=== PATIENT | female | born 1995 | race Caucasian/White ===

== ENCOUNTER 2017-03-21 19:16 | Outpatient (CLI) | payer MEDICAID ==
[~2017-03-21] VITALS: Ht 149.9 cm; Wt 61.1 kg
[2017-03-21 19:58] VITALS: Ht 149.9 cm; Wt 61.1 kg
[2017-03-21 20:00] VITALS: BP 116/69; PULSE 82; RESP 18
[2017-03-21] MEDS ORDERED: PREN-17 PO (20:24)
[2017-03-21 21:47] LABS: ADD UMIC YES; UR ASCORBIC ACID NEGATIVE (NEGATIVE); UR BACTERIA FEW /HPF (NONE SEEN); UR BILIRUBIN (Dip) NEGATIVE (NEGATIVE); UR BLOOD (Dip) NEGATIVE (NEGATIVE); UR CLARITY SLIGHTLY CLOUDY (CLEAR); UR COLOR YELLOW (YELLOW); UR GLUCOSE (Dip) NEGATIVE (NEGATIVE); UR KETONES (Dip) NEGATIVE (NEGATIVE); UR LEUKOCYTE ESTERASE (Dip) 1+ Leu/ul (NEGATIVE); UR NITRITE (Dip) NEGATIVE (NEGATIVE); UR RBC 13 /HPF (0-5); UR SPECIFIC GRAVITY (Dip) 1.013 (1.003-1.030); UR SQUAMOUS EPITHELIAL CELL FEW /HPF (FEW); UR TOTAL PROTEIN (Dip) NEGATIVE (NEGATIVE); UR UROBILINOGEN (Dip) NEGATIVE (NEGATIVE)
--- NOTE | 2017-03-22 00:03 | PN ---
Triage Information Date/Time Mar 22, 2017 Reason for visit: Uterine contractions Weeks of Gestation 40w 5d /Para 1/0 Diabetes: none Hypertention: none Additional information Pt came in after having one contraction. Denies any bleeding or leaking. Feels the baby moving a lot. PMHx: none. PSHx: none. NKDA. Objective Vital Signs Date Time Temp Pulse Resp B/P Pulse Ox O2 Delivery O2 Flow Rate FiO2 03/21/17 20:00 98.4 82 18 116/69 Room Air Heart Rate: 130's Heart Rate Comments No decels. Contractions: 6-10 Minutes Apart Exam 60%/FT/-2/posterior. After ambulating x 2 hours the exam is unchanged. Results/Medications Results 24 hrs Laboratory Tests Test 03/21/17 20:00 Urine Color YELLOW Urine Clarity SLIGHTLY CLOUDY A Urine pH 7.0 Urine Specific [place] 1.013 Urine Ketones NEGATIVE Urine Nitrite NEGATIVE Urine Bilirubin NEGATIVE Urine Urobilinogen NEGATIVE Urine Leukocyte Esterase 1+ H Urine Microscopic RBC 13 H Urine Microscopic WBC 4 Urine Squamous Epithelial Cells FEW Urine Bacteria FEW A Urine Hemoglobin NEGATIVE Urine Glucose NEGATIVE Urine Total Protein NEGATIVE Disposition: Discharge Assessment/Plan A: IUP at 40w 5d. False labor. P: D/C home. Pt is scheduled for induction on 03/25. Reviewed labor precautions with pt. CHRISTOFER VELA MD Mar 22, 2017 00:03
--- NOTE | 2017-03-22 00:21 | TRIAGE ---
OB Triage Datetime Report Generated by CPN: 03/22/2017 00:21 Datetime: 03/21/2017 23:20 Stage of : OB Triage Datetime: 03/21/2017 22:32 Heart Rate FHR Baseline Rate: 125 Monitor Mode: External US FHR Baseline Changes: No Baseline Change Variability: Moderate 6-25 bpm Accelerations: 15X15 Decelerations: None Category: Category I Vaginal Exam Dilatation (cms): 0.5 Effacement (%): 60 Station: -2 Exam By: Murali Claros Membrane Status: Intact Vaginal Bleeding: None Cervix, Consistency: Soft Cervix, Position: Posterior Presentation 'A': Cephalic Datetime: 03/21/2017 22:10 Stage of : OB Triage Monitor Mode: External Quality: Moderate Pattern: Normal: <= 5 Contractions in 10 Minutes Resting Tone [place]: Relaxed Heart Rate FHR Baseline Rate: 130 Monitor Mode: External US Pain Assessment Pain Scale: 3 Pain Presence: Intermittent Pain Type: Cramping Pain Location: Abdomen Datetime: 03/21/2017 20:59 Stage of : OB Triage Datetime: 03/21/2017 20:06 Stage of : OB Triage Labor Evaluation Frequency: 5-8 Monitor Mode: External Duration (sec)2399: 60 Quality: Moderate Pattern: Normal: <= 5 Contractions in 10 Minutes Resting Tone [place]: Relaxed Heart Rate FHR Baseline Rate: 120 Monitor Mode: External US FHR Baseline Changes: No Baseline Change Variability: Moderate 6-25 bpm Accelerations: 15X15 Decelerations: None Category: Category I Vaginal Exam Dilatation (cms): 0.5 Effacement (%): 60 Station: -2 Exam By: Murali Farah Status: Intact Vaginal Bleeding: Scant Cervix, Consistency: Soft Cervix, Position: Posterior Presentation 'A': Cephalic Datetime: 03/21/2017 19:35 EGA: 40.4 Datetime: 03/21/2017 19:30 Time of Arrival: 03/21/2017 19:10 Arrived By: Wheelchair Arrived From: Home Chief Complaint: c/o ucs. Denies hx problems this Movement: Present Contractions: Regular Time Contractions Began: 03/21/2017 18:50 Rupture of Membranes: Denies Vaginal Bleeding: None Vaginal Discharge: Denies Recent Sexual Intercouse: Denies Abdominal Trauma: Not Applicable Patient Complaints: Contractions Time Provider Notified: 03/21/2017 21:00 Provider Notified: Dr Thomas Initial Plan: EFM,SVE Datetime: 03/21/2017 19:24 Stage of : OB Triage Maternal Assessment Level of Consciousness: Fully Conscious Headache: Denies Blurred Vision: No Nausea/Vomiting: Denies RUQ Epigastric Pain: Denies Facial Edema: None Monitor Mode: External Resting Tone [place]: Relaxed Heart Rate FHR Baseline Rate: 140 Monitor Mode: External US Pain Assessment Pain Scale: 6 Pain Presence: Intermittent Pain Type: Contraction Pain Location: Abdomen
== END 2017-03-22 00:01 | disposition home or self-care (01) ==
LOC: OBT 19:16 → L-D 19:18 → OBT 03-22 00:01
PROVIDERS: ATTEND Obstetrics & Gynecology
DX: O62.9 Abnormality of forces of labor, unspecified (principal); Z3A.40 40 weeks gestation of pregnancy
CPT/HCPCS: 81001; Z7500; G0463

== ENCOUNTER 2017-03-25 12:33 | Inpatient (IN) | payer MEDICAID ==
[~2017-03-25] VITALS: Ht 162.6 cm; Wt 63.0 kg
[~2017-03-25 12:33] MED LIST: PREN-17 PO
[2017-03-25 12:49] VITALS: BP 119/63; PULSE 72; RESP 18; BMI 27.0
--- NOTE | 2017-03-25 13:46 | RADRPT ---
PROCEDURE: US OB biophysical profile. CLINICAL INDICATION: Post dates TECHNIQUE: Multiple sonographic images of the pelvis were obtained. The images were reviewed on a PACS workstation. COMPARISON: None FINDINGS: There is a single live intrauterine , in cephalic presentation. A normal heart rate i s identified measuring 153 beats per minute. The amniotic fluid index is within normal limits measur ing 6.5 cm. The placenta is grade II - III, located fundally. Biophysical profile: movement 2/2 tone 2/2. breathing 2/2 BUSHRA 2/2 Total 11/13 IMPRESSION: 1. Biophysical profile score of 11/13. 2. Single live intrauterine in cephalic presentation with normal heart rate of 153 b pm. 3. Normal amniotic fluid index of 6.5 cm. RPTAT: AAPP Physician Eva Date Time Electronically viewed and signed by Physician Eva on 03/25/2017 13:47 INDU/
--- NOTE | 2017-03-25 13:51 | RADRPT ---
PROCEDURE: US OB. CLINICAL INDICATION: Post dates. TECHNIQUE: Multiple sonographic images of the pelvis were obtained. Transabdominal imaging only w as performed. The images were reviewed on a PACS workstation. COMPARISON: No prior studies are available for comparison. FINDINGS: There is a single living intrauterine gestation in cephalic position. There is an fundal placenta. There is no evidence of previa. There is active cardiac motion seen at 132 beats per minute. The biparietal diameter is 9.4 cm. The head circumference is 34. 38 cm.. The abdominal circumference is 37.12 cm. The femur length is 7.61 cm.. Consistent with: 06-tovk-4-day gestation Estimated weight is 3982 plus or minus 597 g. IMPRESSION: 1. Single living intrauterine gestation in cephalic position with a mean gestational age by ultraso und of 39 weeks 3 days plus or minus 19 days with estimated date of delivery of 03/29/2017 by ultras ound criteria. RPTAT: AACC Physician Alexis Date Time Electronically viewed and signed by Physician Alexis on 03/25/2017 13:51 /
[2017-03-25] MEDS ORDERED: CARBOPROST 250 MCG INJ IM PRN (14:30)
[2017-03-25] MEDS ORDERED: BUTORPHANOL 2 MG INJ IV PRN (14:30)
[2017-03-25] MEDS ORDERED: OXYTOCIN 30 UNITS/LR 500 ML IV PRN (14:30)
[2017-03-25] MEDS ORDERED: OXYTOCIN 30 UNITS/LR 500 ML IV SCH ×2 (14:30)
[2017-03-25] MEDS ORDERED: DINOPROSTONE 10 MG VAG SUPP VAG ONE (14:30)
[2017-03-25] MEDS ORDERED: LIDOCAINE 1% (MPF) 30 ML INJ INJ PRN (14:30)
[2017-03-25] MEDS ORDERED: METHYLERGONOVINE 0.2 MG INJ IM PRN (14:30)
[2017-03-25] MEDS ORDERED: MISOPROSTOL 200 MCG TAB PR PRN (14:30)
[2017-03-25] MEDS: LACTATED RINGER'S 1,000 ML IV SCH ×2 (15:27→20:22)
[2017-03-25 16:20] LABS: BASOPHILS % 0.2 % (0.0-2.0); EOSINOPHILS # 0.3 10^3/ul (0.0-0.5); EOSINOPHILS % 2.9 % (0.0-7.0); HEMATOCRIT 39.9 % (37.0-47.0); HEMOGLOBIN 13.6 g/dl (12.0-16.0); LYMPHOCYTES # 1.4 10^3/ul (0.8-2.9); LYMPHOCYTES % 14.7 % (18.0-55.0); MEAN CORPUSCULAR HGB CONC 34.1 g/dl (32.0-37.0); MEAN CORPUSCULAR VOLUME 93.9 fl (72.0-104.0); MEAN PLATELET VOLUME 10.9 fl (7.4-10.4); MONOCYTE # 0.8 10^3/ul (0.3-0.9); MONOCYTES % 8.1 % (0.0-13.0); NEUTROPHIL # 7.2 10^3/ul (1.6-7.5); NEUTROPHILS % 73.4 % (30.0-74.0); PLATELET COUNT 203 10^3/UL (140-415); RED BLOOD COUNT 4.25 10^6/ul (4.20-5.40); RED CELL DISTRIBUTION WIDTH 13.5 % (11.5-14.5); WHITE BLOOD COUNT 9.8 10^3/ul (4.8-10.8)
[2017-03-25 16:29] LABS: INR 0.87; PROTIME 11.9 Sec (11.9-14.9); PT RATIO 0.9
[2017-03-25 16:30] LABS: PARTIAL THROMBOPLASTIN TIME 25.2 Sec (25.0-35.0)
--- NOTE | 2017-03-25 17:03 | HP ---
Date/Time of Note Date/Time of Note DATE: 03/25/17 TIME: 16:54 OB - History Hx of Present Free Text/Dictation 21 years old female 1 para 0 EDC March 17, 2017 admitted to [facility] labor and delivery room at 41 week and 1 day gestation in early labor may require labor augmentation. Chief Complaint: Labor contract Estimated Due Date: Mar 17, 2017 : 1 Para: 0 Care: Good Care Obstetrical Complications: None Medical Complications: None Past Family/Social History * Past Medical, Surgical, Family and Obstetric Histories reviewed from chart. Rubella: immune RPR/VDRL: Negative GBS Status: Negative HBsAG: Negative OB Admission Exam Vital Signs Vital Signs Vital Signs Date Time Temp Pulse Resp B/P Pulse Ox O2 Delivery O2 Flow Rate FiO2 03/25/17 12:49 97.9 72 18 119/63 Physical Exam HEENT: WNL Heart: Rhythm Normal Extremities: Normal Reflexes: Normal Cervical Dilatation: 1cm Effacement: 50% Station: -2 Membranes: Intact Heart Rate: 130's Accelerations: Accelerations Present Decelerations: No Decelerations Contractions on Admission: >10 Minutes Apart Intensity: Mild Last 72 hours Lab Results CBC & BMP 03/25/17 15:55 OB Assessment/Plan Reason for admission: other (41 week 1 day early labor) Other plan: 21 years old female 41 weeks 1 day EDC March 17, 2017 admitted to [facility] labor and delivery room in early labo, r pelvic examination and admission cervix 1 cm 50% effaced vertex at -2 station she may require labor augmentation. Cervidil induction explained to the patient , risks and benefits discussed and she is willing to go ahead with the procedure JOSEF ZAVALETA MD Mar 25, 2017 17:03
[2017-03-26] MEDS: BUTORPHANOL 2 MG INJ IV PRN ×2 (01:18→06:46)
[2017-03-26 02:01] VITALS: Ht 162.6 cm; Wt 63.0 kg
[2017-03-26 02:06] VITALS: BP 115/74; RESP 18
[2017-03-26] MEDS: LACTATED RINGER'S 1,000 ML IV SCH ×2 (05:19→12:58)
[2017-03-26] MEDS ORDERED: OXYTOCIN 30 UNITS/LR 500 ML IV SCH (06:00)
[2017-03-26] MEDS ORDERED: CEFAZOLIN 2 GM/50 ML (PMX) 50 ML IVPB ONE (13:00)
[2017-03-26 13:17] LABS: BARBITURATES Negative (NEGATIVE); BENZODIAZEPINES Negative (NEGATIVE); CANNABINOIDS Negative (NEGATIVE); COCAINE Negative (NEGATIVE); OPIATES Negative (NEGATIVE)
[2017-03-26] MEDS ORDERED: FENTAnyl 50 MCG/ML VIAL ONE (13:35)
[2017-03-26] MEDS ORDERED: morphine SULFATE/PF (10 MG/10 ML) INJ ONE (13:35)
[2017-03-26] MEDS ORDERED: PHENYLephrine (100 MCG/ML) 5ML SYG ONE ×2 (13:48→14:15)
[2017-03-26] MEDS ORDERED: OXYTOCIN 30 UNITS/LR 500 ML IV ONE (13:58)
[2017-03-26] MEDS ORDERED: DEXAMETHASONE 4 MG/ML 1 ML INJ ONE (14:14)
[2017-03-26] MEDS ORDERED: ONDANSETRON 4 MG INJ ONE (14:14)
[2017-03-26] MEDS ORDERED: DIPHENHYDRAMINE 50 MG INJ ONE (14:21)
[2017-03-26] MEDS ORDERED: HYDROmorphONE 0.5 MG/0.5 ML SYG IV PRN ×2 (15:00)
[2017-03-26] MEDS ORDERED: ZOLPIDEM 5 MG TAB PO PRN (15:00)
[2017-03-26] MEDS ORDERED: NALOXONE (0.4 MG/ML) INJ IV PRN (15:00)
[2017-03-26] MEDS ORDERED: NALBUPHINE HCL (10 MG/1 ML) INJ IV PRN (15:00)
[2017-03-26] MEDS ORDERED: ONDANSETRON 4 MG INJ IV PRN (15:00)
[2017-03-26] MEDS ORDERED: DIPHENHYDRAMINE 50 MG INJ IV PRN (15:00)
--- NOTE | 2017-03-26 16:40 | HP ---
Date/Time of Note Date/Time of Note DATE: 03/26/17 TIME: 13:49 OB - History Hx of Present Free Text/Dictation 21 years old white female EDC March 17, 2017 admitted at 41 week and 2 days to [facility] for induction of labor, for post dates and low BUSHRA, category 2 heart tracing cervical examination on admission cervix 1 cm 50% vertex at -2 station, Cervidil insertion was on 155March 25, 2017 followed with Pitocin IV infusion drip at approximately 4:00 AM today patient continued labor heart minimally reactive, patient declined further trial of labor vaginal delivery after consulting with the family requesting C- section delivery. Chief Complaint: 41 week and 2 days failed induction declined further trial of lab Estimated Due Date: Mar 17, 2017 : 1 Para: 0 Care: Good Care Ultrasounds: Normal mid trimester US Obstetrical Complications: None Medical Complications: None Past Family/Social History * Past Medical, Surgical, Family and Obstetric Histories reviewed from chart. Rubella: immune RPR/VDRL: Negative GBS Status: Negative HBsAG: Negative OB Admission Exam Vital Signs Vital Signs Vital Signs Date Time Temp Pulse Resp B/P Pulse Ox O2 Delivery O2 Flow Rate FiO2 03/26/17 02:06 98.6 18 115/74 Room Air 03/25/17 12:49 72 Physical Exam HEENT: WNL Heart: Rhythm Normal Lungs: Clear, Equal Abdomen: WNL Extremities: Normal Effacement: 50% Station: -2 Membranes: Intact Heart Rate: 130's Accelerations: No Accelerations Varibility: Minimum Contractions on Admission: None Last 72 hours Lab Results CBC & BMP 03/25/17 15:55 OB Assessment/Plan Reason for admission: other (Day 1 weeks 2 days admitted for induction of labor) Other plan: 21 years old white female EDC March 17, 2017 admitted for induction of labor for trial of labor with Cervidil and Pitocin induction ,patient did not progress further than 1-2 cm dilatation, declined further trial of labor requested delivery ,option of continuation of induction and benefits of vaginal delivery discussed, she declined further trial of labor requesting section delivery, complication of the including but not limited to bowel bladder injury infection hemorrhage and wound hematoma explained , she would like to proceed with delivery JOSEF ZAVALETA MD Mar 26, 2017 16:40
--- NOTE | 2017-03-26 16:45 | OPR ---
Operative Report Planned Procedure Free Text/Dictation 21 years old EDC 03/17/2017 41 week and 2 days failed induction declined further trial of labor requested delivery Procedure date Mar 26, 2017 Procedure(s) Primary Performed by see signature line Nuclear Technician DELFIN CABA Anesthesiologist: VERNON SPANN MD Pre-procedure diagnosis 41 weeks 2 days , failed induction declined further trial of labor , requested delivery Anesthesia Type: spinal Post-Procedure Post-procedure diagnosis Same as above Findings Live Baby boy Apgars 8 and 9 Estimated Blood Loss: 500 - 600 mls Specimen(s) none Grafts/Implant(s) none Complication(s) none Pt Condition post procedure: stable Procedure Description Under satisfactory spinal anesthesia patient prepped and draped and placed in supine position. Pfannenstiel incision was made. Incision carried through the subcutaneous tissue. Fascia incised to the length of incision. Rectus muscle divided in midline. Peritoneum exposed and entered to a vertical incision. Exploration of abdomen revealed [gravid uterus at term normal-appearing tubes and ovaries.] Bladder flap was developed. Transverse incision was made in the lower segment of the uterus. Amniotic sac ruptured, [clear amniotic fluid noted. ] Live baby boy was delivered from unengaged vertex.Naso oropharyngeal suction was performed. Baby handed to the team for immediate attention. Patient received 20 units of Pitocin. Placenta delivered manually intact. Uterine cavity cleaned with a wet sponge and drainage established. Uterus closed in 2 layers using Monocryl #1 in continuous fashion. Peritoneal cavity irrigated with warm saline. Sponge needle instrument reported to be correct. Abdominal peritoneum closed with 2-0 chromic catgut continuously. Fascia closed with #1 PDS in a continuous fashion. Subcutaneous tissue irrigated with warm saline and approximated with 2-0 chromic catgut skin closed with N sorb. Estimated blood loss [6-700 cc]. Urine bag containing [200] mL of [clear] urine. Patient tolerated procedure well and transferred to recovery room in good condition. JOSEF ZAVALETA MD Mar 26, 2017 16:45
[2017-03-26 18:30] VITALS: BP 123/78; PULSE 73; RESP 16
[2017-03-26] MEDS: OXYTOCIN 30 UNITS/LR 500 ML IV SCH ×2 (18:41→22:41)
[2017-03-26] MEDS ORDERED: METHYLERGONOVINE 0.2 MG INJ IM PRN (19:00)
[2017-03-26] MEDS ORDERED: MISOPROSTOL 200 MCG TAB PR PRN (19:00)
[2017-03-26] MEDS ORDERED: OXYTOCIN 30 UNITS/LR 500 ML IV PRN (19:00)
[2017-03-26] MEDS ORDERED: HYDROCODONE/APAP (5/325) TAB PO PRN ×2 (19:00)
[2017-03-26] MEDS ORDERED: OXYCODONE/ACETAMINOPHEN (5/325) TAB PO PRN (19:00)
[2017-03-26] MEDS ORDERED: CARBOPROST 250 MCG INJ IM PRN (19:00)
[2017-03-26] MEDS ORDERED: LANOLIN 7 GM TUBE TOP PRN (19:00)
[2017-03-26] MEDS ORDERED: CEFAZOLIN 1 GM/50 ML (PMX) 50 ML IVPB SCH (19:00)
[2017-03-26 20:00] VITALS: BP 108/62; PULSE 72; RESP 17
[2017-03-26] MEDS: KETOROLAC 30 MG INJ IV PRN (20:47)
[2017-03-27] MEDS: OXYTOCIN 30 UNITS/LR 500 ML IV SCH ×2 (02:41→06:41)
[2017-03-27 04:00] VITALS: BP 102/53; PULSE 72; RESP 17
[2017-03-27] MEDS: KETOROLAC 30 MG INJ IV PRN ×2 (05:24→13:14)
[2017-03-27] MEDS ORDERED: LACTATED RINGER'S 1,000 ML IV SCH (08:00)
[2017-03-27 08:15] VITALS: BP 92/55; PULSE 69; RESP 18
[2017-03-27] MEDS: SENNA/DOCUSATE NA (8.6MG/50MG) TAB PO SCH ×2 (09:27→20:32)
[2017-03-27 09:48] LABS: BASOPHILS % 0.2 % (0.0-2.0); EOSINOPHILS # 0.1 10^3/ul (0.0-0.5); EOSINOPHILS % 0.6 % (0.0-7.0); HEMOGLOBIN 9.2 g/dl (12.0-16.0); LYMPHOCYTES # 1.6 10^3/ul (0.8-2.9); LYMPHOCYTES % 12.2 % (18.0-55.0); MEAN CORPUSCULAR HEMOGLOBIN 30.9 pg (29.0-33.0); MEAN CORPUSCULAR HGB CONC 32.9 g/dl (32.0-37.0); MEAN PLATELET VOLUME 10.4 fl (7.4-10.4); MONOCYTE # 1.3 10^3/ul (0.3-0.9); MONOCYTES % 10.2 % (0.0-13.0); NEUTROPHILS % 76.3 % (30.0-74.0); PLATELET COUNT 153 10^3/UL (140-415); RED BLOOD COUNT 2.98 10^6/ul (4.20-5.40); RED CELL DISTRIBUTION WIDTH 13.2 % (11.5-14.5); WHITE BLOOD COUNT 13.1 10^3/ul (4.8-10.8)
--- NOTE | 2017-03-27 09:48 | QN ---
Documentation Comment Post day 1 Afebrile Vital signs are stable Abdomen soft incision dry,. Bowel sounds present. Lochia moderate. Extremities normal. Ambulation encouraged. JOSEF ZAVALETA MD Mar 27, 2017 09:48
[2017-03-27 12:55] VITALS: BP 95/60; PULSE 78; RESP 14
[2017-03-27 16:30] VITALS: BP 99/71; PULSE 79; RESP 18
[2017-03-27] MEDS: IBUPROFEN 600 MG TAB PO SCH (18:18)
[2017-03-27 20:00] VITALS: BP 91/59; PULSE 84; RESP 18
[2017-03-27] MEDS: OXYCODONE/ACETAMINOPHEN (5/325) TAB PO PRN (20:07)
[2017-03-28] MEDS: OXYCODONE/ACETAMINOPHEN (5/325) TAB PO PRN ×3 (01:21→16:22)
[2017-03-28 04:00] VITALS: BP 90/54; PULSE 74; RESP 19
[2017-03-28] MEDS: IBUPROFEN 600 MG TAB PO SCH ×4 (05:43→17:54)
[2017-03-28 07:50] VITALS: BP 101/57; RESP 17
[2017-03-28] MEDS: SENNA/DOCUSATE NA (8.6MG/50MG) TAB PO SCH ×2 (10:05→21:17)
--- NOTE | 2017-03-28 10:19 | QN ---
Documentation Comment Day 2 post Vital signs, blood pressure 90s over 60s. At times she feels lightheaded. Advised ambulation with help. Hydration encouraged. Abdomen soft bowel sounds present. No bowel movements. Enema recommended. Current Medications Medications (Trade) Dose Ordered Sig/Coleman Route PRN Reason Start Time Stop Time Status Last Admin Dose Admin Lactated Ringer's (Lr) 1,000 ml @ 125 mls/hr Q8H IV 03/25/17 14:26 03/26/17 18:43 DC 03/26/17 12:58 Dinoprostone (Cervidil Vaginal Supp) 10 mg ONCE ONCE VAG 03/25/17 14:30 03/25/17 14:34 DC 03/25/17 15:56 Butorphanol Tartrate (Stadol) 1 mg Q2H PRN IV PAIN 03/25/17 14:30 03/26/17 18:43 DC Butorphanol Tartrate (Stadol) 2 mg Q2H PRN IV PAIN 03/25/17 14:30 03/26/17 18:43 DC 03/26/17 06:46 Lidocaine 30 ml 30 ml ONCE PRN INJ EPISIOTOMY/TEARING 03/25/17 14:30 03/26/17 18:43 DC Oxytocin/Lactated Ringer's 500 ml @ 500 mls/hr ONCE POST IV 03/25/17 14:30 03/26/17 18:43 DC 03/26/17 16:30 Oxytocin/Lactated Ringer's 500 ml @ 125 mls/hr POST IV 03/25/17 14:30 03/26/17 18:43 DC 03/26/17 16:31 Oxytocin/Lactated Ringer's 500 ml @ 0 mls/hr ONCE PRN IV For Hemorrhage Management 03/25/17 14:30 03/26/17 18:43 DC Methylergonovine Maleate (Methergine) 0.2 mg ONCE PRN IM VAGINAL BLEEDING 03/25/17 14:30 03/26/17 18:43 DC Carboprost Tromethamine (Hemabate) 250 mcg ONCE PRN IM VAGINAL BLEEDING 03/25/17 14:30 03/26/17 18:43 DC Misoprostol 1000 mcg 1,000 mcg ONCE PRN MI VAGINAL BLEEDING 03/25/17 14:30 03/26/17 18:44 DC Oxytocin/Lactated Ringer's 500 ml @ 0 mls/hr TITRATE IV 03/26/17 06:00 03/26/17 18:43 DC 03/26/17 05:52 Cefazolin Sodium/ Dextrose (Ancef 2 Gm/50 ml (Pmx)) 50 ml @ 100 mls/hr ONCE ONCE IVPB 03/26/17 13:00 03/26/17 13:29 DC Fentanyl (Sublimaze) 100 mcg STK-MED ONCE .ROUTE 03/26/17 13:35 03/26/17 13:36 DC Morphine Sulfate (Duramorph) 10 mg STK-MED ONCE .ROUTE 03/26/17 13:35 03/26/17 13:36 DC Phenylephrine HCl 500 mcg 500 mcg STK-MED ONCE .ROUTE 03/26/17 13:48 03/26/17 13:49 DC Oxytocin/Lactated Ringer's 500 ml @ ud STK-MED ONCE IV 03/26/17 13:58 03/26/17 13:59 DC Ondansetron HCl (Zofran Inj) 4 mg STK-MED ONCE .ROUTE 03/26/17 14:14 03/26/17 14:15 DC Dexamethasone (Decadron) 4 mg STK-MED ONCE .ROUTE 03/26/17 14:14 03/26/17 14:15 DC Phenylephrine HCl (Rich-Synephrine Inj Syg) 500 mcg STK-MED ONCE .ROUTE 03/26/17 14:15 03/26/17 14:16 DC Diphenhydramine HCl (Benadryl) 50 mg STK-MED ONCE .ROUTE 03/26/17 14:21 03/26/17 14:22 DC Naloxone HCl (Narcan) 0.1 mg Q2M PRN IV FOR RESP RATE 8 OR LESS 03/26/17 15:00 03/27/17 14:59 DC Ketorolac Tromethamine (Toradol) 30 mg Q6H PRN IV PAIN 03/26/17 15:00 03/27/17 14:59 DC 03/27/17 13:14 Hydromorphone HCl (Dilaudid) 0.2 mg Q3H PRN IV PAIN LEVEL 1-5 03/26/17 15:00 03/27/17 14:59 DC Hydromorphone HCl (Dilaudid) 0.4 mg Q3H PRN IV PAIN LEVEL 6-10 03/26/17 15:00 03/27/17 14:59 DC Diphenhydramine HCl (Benadryl) 25 mg Q6H PRN IV ITCHING 03/26/17 15:00 03/27/17 14:59 DC Nalbuphine HCl (Nubain) 5 mg ONCE PRN IV ITCHING 03/26/17 15:00 03/27/17 14:59 DC Ondansetron HCl (Zofran Inj) 4 mg Q6H PRN IV NAUSEA AND/OR VOMITING 03/26/17 15:00 03/27/17 14:59 DC Zolpidem Tartrate (Ambien) 5 mg HS MAY REPEAT X 1 PRN PO INSOMNIA 03/26/17 15:00 03/27/17 14:59 DC Acetaminophen/ Hydrocodone Bitart ([place] (5/325)) 1 tab Q4H PRN PO PAIN LEVEL 4-6 03/26/17 19:00 Acetaminophen/ Hydrocodone Bitart ([place] (5/325)) 2 tab Q4H PRN PO PAIN LEVEL 7-10 03/26/17 19:00 Oxycodone/ Acetaminophen (Percocet (5/ 325)) 1 tab Q4H PRN PO PAIN LEVEL 4-6 03/26/17 19:00 Oxycodone/ Acetaminophen (Percocet (5/ 325)) 2 tab Q4H PRN PO PAIN LEVEL 7-10 03/26/17 19:00 03/28/17 01:21 Ibuprofen (Motrin) 600 mg Q6 PO 03/27/17 18:00 03/28/17 05:43 Simethicone (Mylicon) 160 mg Q8H PRN PO DISTENSION/GAS/BLOATING 03/26/17 19:00 03/27/17 19:06 Senna/Docusate Sodium (Senokot-S) 1 tab BID PO 03/27/17 09:00 03/28/17 10:05 Lanolin (Yoq-G-Aeukih) 1 applic BEDSIDE MEDICATION PRN TOP BEDSIDE FOR MARIA ELENA TO NIPPLES 03/26/17 19:00 Diphtheria/ Tetanus/Acell Pertussis 0.5 ml 0.5 ml ONCE ONCE IM* 03/29/17 09:00 03/29/17 09:01 Oxytocin/Lactated Ringer's 500 ml @ 0 mls/hr ONCE PRN IV For Hemorrhage Management 03/26/17 19:00 Methylergonovine Maleate (Methergine) 0.2 mg ONCE PRN IM VAGINAL BLEEDING 03/26/17 19:00 Carboprost Tromethamine (Hemabate) 250 mcg ONCE PRN IM VAGINAL BLEEDING 03/26/17 19:00 Misoprostol 1000 mcg 1,000 mcg ONCE PRN MI VAGINAL BLEEDING 03/26/17 19:00 Cefazolin Sodium 50 ml @ 100 mls/hr ONCE IVPB 03/26/17 19:00 03/26/17 19:29 DC 03/26/17 20:12 Oxytocin/Lactated Ringer's 500 ml @ 125 mls/hr Q4H IV 03/26/17 18:41 03/27/17 08:01 DC Lactated Ringer's (Lr) 1,000 ml @ 125 mls/hr Q8H IV 03/27/17 08:00 03/27/17 07:57 JOSEF ZAVALETA MD Mar 28, 2017 10:19
[2017-03-28] MEDS ORDERED: NA PHOSPHATE/BIPHOS 133 ML ENEMA PR ONE ×2 (11:00→21:12)
[2017-03-28] MEDS ORDERED: INFLUENZA VIRUS VACCINE 0.5 ML SYG IM* ONE (15:00)
[2017-03-28 16:00] VITALS: BP 119/85; PULSE 86; RESP 17
[2017-03-28 20:30] VITALS: BP 96/67; PULSE 83; RESP 18
[2017-03-29] MEDS: IBUPROFEN 600 MG TAB PO SCH ×4 (00:10→17:27)
[2017-03-29 04:51] VITALS: BP 118/65; PULSE 73; RESP 18
[2017-03-29 07:58] VITALS: BP 101/56; RESP 18
[2017-03-29] MEDS ORDERED: DIPHTH/TET/ACEL PERTUSS (ADULT) 0.5 ML VIAL IM* ONE (09:00)
[2017-03-29 09:20] LABS: BASOPHILS % 0.2 % (0.0-2.0); EOSINOPHILS # 0.4 10^3/ul (0.0-0.5); EOSINOPHILS % 4.6 % (0.0-7.0); HEMATOCRIT 28.2 % (37.0-47.0); HEMOGLOBIN 9.3 g/dl (12.0-16.0); LYMPHOCYTES # 0.8 10^3/ul (0.8-2.9); LYMPHOCYTES % 9.4 % (18.0-55.0); MEAN CORPUSCULAR HEMOGLOBIN 31.6 pg (29.0-33.0); MEAN CORPUSCULAR VOLUME 95.9 fl (72.0-104.0); MEAN PLATELET VOLUME 10.2 fl (7.4-10.4); MONOCYTE # 0.5 10^3/ul (0.3-0.9); MONOCYTES % 6.3 % (0.0-13.0); NEUTROPHIL # 6.4 10^3/ul (1.6-7.5); NEUTROPHILS % 79.3 % (30.0-74.0); PLATELET COUNT 175 10^3/UL (140-415); RED BLOOD COUNT 2.94 10^6/ul (4.20-5.40); RED CELL DISTRIBUTION WIDTH 13.1 % (11.5-14.5); WHITE BLOOD COUNT 8.1 10^3/ul (4.8-10.8)
[2017-03-29] MEDS: SENNA/DOCUSATE NA (8.6MG/50MG) TAB PO SCH (09:29)
[2017-03-29] MEDS: OXYCODONE/ACETAMINOPHEN (5/325) TAB PO PRN ×2 (09:55→16:24)
[2017-03-29 15:10] VITALS: BP 106/58; PULSE 84; RESP 16
--- NOTE | 2017-03-29 16:34 | PD.PPDC ---
APPLICATIONS ANALYST Discharge Instruction Condition Patient Condition: Good Diet Diet: Resume Regular Diet Activity/Restrictions Activity: Normal Activity May Shower Restrictions: No Exercising No Lifting No Driving No Sexual Activity Nothing in the Vagina No [place] No Tampons, douche Wound/Drain Care Instructions Wound/Drain Care Instructions: Remove Steri Strips in 1 week Follow-up Follow-up with Physician: 1, Week/Weeks Provider Information: instruction given recommended to make appointment to be seen at the clinic in 1 week Return to clinic for MAMMOGRAPHY TECHNICIAN Instructions: Fever greater than 101 Chills Worsening abdominal pain Excessive Vaginal Bleeding More than 2 pads per hour Unable to tolerate diet OB Instructions: Breast Tenderness Depression Blurried Vision Headache Surgical Instructions: Incisional Drainage Incisional Redness JOSEF ZAVALETA MD Mar 29, 2017 16:34
--- NOTE | 2017-03-29 16:37 | DS ---
Date/Time of Note Date/Time of Note DATE: 03/29/17 TIME: 16:35 Discharge Summary Admission/Discharge Info Admit Date/Time Mar 25, 2017 at 14:43 Discharge Date/Time 10/27/2016 at 1630 Discharge Diagnosis Post day 3 Patient Condition: Good Procedures Primary Hx of Present Illness Term failure to progress declined further trial of labor, primary C- section Hospital Course Satisfactory recovery uneventful Home Meds Reported Medications Vit No.78/Iron/FA (Prenatabs FA Tablet) 1 Each Tablet, 1 EACH PO DAILY , TAB 03/21/17 Follow-up Plan instruction given recommended to make appointment to be seen at the clinic in 1 week Primary Care Provider Care Physician No Primary Time spent on discharge: < 30 minutes Pending Labs Laboratory Tests Test 03/29/17 08:44 White Blood Count 8.110^3/ul (4.8-10.8) Red Blood Count 2.9410^6/ul (4.20-5.40) Hemoglobin 9.3g/dl (12.0-16.0) Hematocrit 28.2% (37.0-47.0) Mean Corpuscular Volume 95.9fl (72.0-104.0) Mean Corpuscular Hemoglobin 31.6pg (29.0-33.0) Mean Corpuscular Hemoglobin Concent 33.0g/dl (32.0-37.0) Red Cell Distribution Width 13.1% (11.5-14.5) Platelet Count 22964^3/UL (140-415) Mean Platelet Volume 10.2fl (7.4-10.4) Neutrophils % 79.3% (30.0-74.0) Lymphocytes % 9.4% (18.0-55.0) Monocytes % 6.3% (0.0-13.0) Eosinophils % 4.6% (0.0-7.0) Basophils % 0.2% (0.0-2.0) Nucleated Red Blood Cells % 0.0/100WBC (0.0-0.0) Neutrophils # 6.410^3/ul (1.6-7.5) Lymphocytes # 0.810^3/ul (0.8-2.9) Monocytes # 0.510^3/ul (0.3-0.9) Eosinophils # 0.410^3/ul (0.0-0.5) Basophils # 0.010^3/ul (0.0-0.1) Nucleated Red Blood Cells # 0.010^3/ul (0.0-0.0) JOSEF ZAVALETA MD Mar 29, 2017 16:37
== END 2017-03-29 17:53 | disposition home or self-care (01) | DRG 766 ==
LOC: OBT 12:33 → L-D 12:34 → OBT 14:20 → L-D 14:43 → PP1 03-26 18:22
PROVIDERS: ADMIT Obstetrics & Gynecology; ATTEND Obstetrics & Gynecology
PROC: 3E033VJ Introduction of Other Hormone into Peripheral Vein, Percutaneous Approach (ICD-10-PCS; 2017-03-26)
PROC: 10D00Z1 Extraction of Products of Conception, Low, Open Approach (ICD-10-PCS; principal; 2017-03-26 14:45)
DX: O48.0 Post-term pregnancy (principal); O62.0 Primary inadequate contractions; Z3A.41 41 weeks gestation of pregnancy; Z37.0 Single live birth
CPT/HCPCS: 76815; 76818; 80307; 85025; 85610; 85730; 86592; 86885; 86900; 86901; 90686; 90715; 94760; 99464; G0463; J0595; J0690; J1100; J1200; J1885; J2210; J2274; J2370; J2405; J2590; J3010; J7120